=== PATIENT | female | born 1990 | race Caucasian/White ===

== ENCOUNTER 2023-06-05 00:25 | Emergency (ER) | payer BC, SELFPAY ==
[2023-06-05 00:26] VITALS: BP 113/65; PULSE 89; RESP 18; TEMP 36; O2SAT 100; BMI 34.9
--- NOTE | 2023-06-05 00:40 | ED.VIS.GI ---
HPI HPI - GI History of Present Illness Chief Complaint: Abd Pain Detail of Chief Complaint: Epigastric and right upper quadrant abdominal pain that began around 4:30 Informant: patient and spouse/S.O. Abdominal Pain/Flank Pain Onset: Today and Hours Context: Gradual Onset Timing: Continuous Quality: Aching Location: Epigastric and RUQ Current Severity: Mild Maximum Severity: Moderate Worsened by: Nothing Relieved by: Nothing Nausea/Vomiting/Emesis GI Symptom: Positive for Nausea and Vomiting Onset: Today Severity: Mild Diarrhea/Melena/Hematochezia GI Symptom: Negative for Diarrhea, Melena or Hematochezia Associated Symptoms Associated Symptoms: Negative for Dysuria, Frequency, Hematuria or Urgency Narrative Narrative: 33-year-old female no significant past medical history currently on control and her last menstrual period is now. States she has had epigastric and right upper quadrant abdominal pain since around 4:30 pm this afternoon. Had this before without any specific diagnosis. Denies any prior abdominal or pelvic surgeries. Denies any fever. She has had nausea and vomiting. No diarrhea. No dysuria. No abdominal trauma. Prior similar symptoms: Yes Recent Illness/Hospitalization: No PFSH PFSH Medical History no medical history no medical history Home Medications drospirenone 3 mg-ethinyl estradiol 0.02 mg tablet (Lo-Zumandimine (28)) 1 tab PO DAILY 06/05/23 [History Last Taken Unknown] Allergy/AdvReac Type Severity Reaction Status Date / Time No Known Allergies Allergy Verified 06/05/23 00:26 Social History Smoking Status: Never smoker ROS ROS ED ROS Narrative Epigastric and right upper quadrant abdominal pain. Nausea and vomiting. No diarrhea. No fever. No dysuria. No constipation. Review of Systems ROS Unobtainable: Denies due to encephalopathy Constitutional Constitutional ED: Denies chills or fever(s) Cardiovascular Cardiovascular: Denies chest pain Respiratory/Chest Respiratory/Chest: Denies dyspnea Gastrointestinal Gastrointestinal: Reports abdominal pain, nausea and vomiting; Denies constipation, diarrhea or melena Genitourinary Genitourinary ED: Denies dysuria or urinary frequency Musculoskeletal Musculoskeletal: Denies arthralgias or back pain Integumentary Denies abscess or Abrasions Neurologic Neurologic: Denies headache(s) Psychiatric Psychiatric: Denies anxiety Endocrine Endocrinology: Denies polydipsia Hematologic/Lymphatic Hematologic/Lymphatic: Denies easy bleeding or easy bruising Allergic/Immunologic Allergic/Immunologic ED: Denies mouth swelling, tongue swelling or urticaria EXAM Physical Exam Narrative Exam Narrative: 33-year-old female vital signs are stable afebrile. Significant other bedside. H EENT exam unremarkable. Moist mucous membranes. Neck nontender no lymphadenopathy. Lungs clear to auscultation bilaterally. Heart regular rhythm rate about 90 no murmur. Chest wall and ribs nontender. Back nontender. Epigastric and right upper quadrant tenderness. No Calderon sign. No McBurney's point tenderness. No hernia or mass. No obstruction. Right lower and left lower quadrant unremarkable. No signs of trauma. Moving all 4 extremities. Nontender no edema. Neurologically she is awake and alert with no focal motor deficits. Const Vital Signs: 06/05/23 00:26 06/05/23 03:38 06/05/23 04:37 Temperature 96.8 F L Temperature Source Temporal Pulse Rate 89 80 83 Respiratory Rate 18 16 19 H Blood Pressure 113/65 126/77 H 141/82 H Blood Pressure Mean 81 93 101 Pulse Ox 100 100 96 Oxygen Delivery Method Room Air Room Air Room Air 06/05/23 05:08 06/05/23 05:43 Temperature 98.0 F Temperature Source Pulse Rate 88 85 Respiratory Rate 18 18 Blood Pressure 152/83 H 138/85 H Blood Pressure Mean 106 102 Pulse Ox 96 99 Oxygen Delivery Method Positive well nourished and well developed; Negative for cachectic, contractures or unkempt General Appearance ED: well developed and NAD; Negative for unkempt, cachectic, contractures or pallor Nutritional Appearance: Negative for cachectic HEENT Reports moist mucous membranes normocephalic and atraumatic; Negative for trauma or tenderness Eyes PERRL and EOMs intact bilaterally General Eye ED: Negative for pale conjunctiva or scleral icterus Neck no lymphadenopathy, supple and no JVD General: Negative for tenderness Carotids: Negative for other Lymph Lymphatic: Negative for other Resp normal respiratory effort and clear to auscultation bilaterally Effort and Inspection: Negative for respiratory distress Auscultation: Negative for rales, rhonchi or wheezes Cardio regular rate, regular rhythm, S1 normal heart sound, S2 normal heart sound and no murmurs Rate: Negative for bradycardia or tachycardic Rhythm: Negative for abnormal rhythm GI non-distended and no masses; Negative for non-tender Inspection: abdominal distention Auscultation: normoactive bowel sounds Palpation: soft and tender; Negative for guarding, rigid, hepatomegaly, splenomegaly, hernia, mass, pulsatile mass or rebound tenderness present Back/Spine no CVA tenderness General Back: Negative for CVA tenderness Cervical Spine: Negative for cervical spine tenderness Thoracic Spine / Upper Back: Negative for thoracic spinal tenderness Lumbar Spine / Lower Back: Negative for lumbar spinal tenderness Coccyx: Negative for other Extremity full ROM General Extremety ED: Negative for edema, tenderness or other findings General Extremity: Negative for edema or other findings Neuro CN's II-XII intact bilaterally and moves all extremities Sensorium / Orientation: alert, oriented to person, oriented to place and oriented to time; Negative for orientation impaired, confused, lethargic or stuporous Motor Exam: strength 5/5 throughout; Negative for general weakness or strength abnormal Psych mental status grossly normal and thought process normal Appearance: Negative for unkempt Attitude: No agitated Mood & Affect: Negative for depressed, anxious or tearful Skin no wounds General Skin Exam: Negative for jaundice or pallor Lesions: no lesions Rashes: no rashes Trauma: Negative for abrasion Nails: Negative for discolored MDM MDM MDM Narrative Medical decision making narrative: 33-year-old female with epigastric right upper quadrant abdominal pain. Differential would include gallbladder disease, pancreatitis, gastritis versus other etiologies. CAT scan labs. Morphine for pain and Zofran for nausea. Repeat exam at 2:44 AM patient doing well. She still having some pain and nausea she will be given additional dose of morphine and Zofran. We have gone over her test results were awaiting CAT scan radiology interpretation. Repeat exam at 3:25 AM. Patient is resting comfortably. Pain is currently under control. As is her nausea. I went over her lab results with her along with the CAT scan results. The concern is that if this is an adenoma it may be bleeding either into the tumor or the liver. We really do not have anybody here that would be able to take care of this and we also do not have interventional radiology on the weekends. I have already spoken to the transfer line at [facility] awaiting to speak to their general surgeon. We are unable to get a ground squad before 7 AM. Patient is having increasing pain. He is received 3 doses of morphine and Zofran. The concern is we do not know how much she is bleeding into her liver or into the adenoma. And there is really nothing else I can offer her at our facility. Were going to see if [facility] or another helicopter transfer is available. Due to the weather though not flying tonight. But they will send in ground squad and should be here in the next hour. I have updated the family on the current plan. [facility] ground squad is here to take the patient at 6:50 AM. She is doing well. She will be given a dose of morphine and Zofran prior to discharge for pain during the ride. History & Record Review Discussion w/independent historian: Patient Additional record(s) reviewed:: No prior records Lab Data Attestation: I reviewed the patient's lab results. Lab results narrative: Chemistries sodium 135. Normal gap. Normal BUN and creatinine. Liver enzymes elevated normal bilirubin. Lipase normal at 52. CBC shows an elevated white count of 15.1. H&H of 10.4 and 32.7. Platelets 169. Serum test negative. Urinalysis is positive for white cells 10-25, red cells 10-25 nitrites and 3+ bacteria consistent with a UTI. No prior labs available for comparison. CAT scan of the abdomen and pelvis with IV contrast shows a large heterogeneous abnormality in the right hepatic lobe measuring 15 x 14 x 11 cm. There is also an internal focus of hyperdensity. This may represent hemorrhage radiologist thinks this may be an adenoma with intra tumor hemorrhage. There is also cholelithiasis but no signs of acute cholecystitis. Labs: Laboratory Results - last 24 hr 06/05/23 06/05/23 06/05/23 00:52 00:52 01:54 WBC Cancelled 15.1 H Corrected WBC Cancelled RBC Cancelled 3.58 L Hgb Cancelled 10.4 L Hct Cancelled 32.7 L MCV Cancelled 91.3 MCH Cancelled 29.1 MCHC Cancelled 31.8 L RDW Std Deviation Cancelled 41.1 RDW Coeff of John Cancelled 12.3 Plt Count Cancelled 169 MPV Cancelled 11.0 Immature Gran % (Auto) Cancelled 0.400 Neut % (Auto) Cancelled 80.0 H Lymph % (Auto) Cancelled 14.3 L Rabun % (Auto) Cancelled 4.5 Eos % (Auto) Cancelled 0.3 Baso % (Auto) Cancelled 0.5 Absolute Neuts (auto) Cancelled 12.1 H Absolute Lymphs (auto) Cancelled 2.16 Total Counted Cancelled Neutrophils % (Manual) Cancelled Band Neutrophils % Cancelled Lymphocytes % (Manual) Cancelled Monocytes % (Manual) Cancelled Eosinophils % (Manual) Cancelled Basophils % (Manual) Cancelled Metamyelocytes % Cancelled Myelocytes % Cancelled Promyelocytes % Cancelled Blast Cells % Cancelled Plasma Cell % (Manual) Cancelled Other Cells % Cancelled Nucleated RBC % Cancelled 0 Nucleated RBCs/100 WBC Cancelled Differential Comment Cancelled Diff Path Review Cancelled Hypersegmented Neuts Cancelled Atypical Lymphocytes Cancelled Reactive Lymphocytes Cancelled Smudge Cells Cancelled Toxic Granulation Cancelled Toxic Vacuolation Cancelled Dohle Bodies Cancelled Belkis Rods Cancelled Platelet Estimate Cancelled Plt Morphology Comment Cancelled RBC Morphology Cancelled Cancelled Polychromasia Cancelled Hypochromasia Cancelled Poikilocytosis Cancelled Basophilic Stippling Cancelled Anisocytosis Cancelled Microcytosis Cancelled Macrocytosis Cancelled Spherocytes Cancelled Sickle Cells Cancelled Target Cells Cancelled Tear Drop Cells Cancelled Ovalocytes Cancelled Stomatocytes Cancelled Dhillon-[place] Bodies Cancelled Ashly Cells Cancelled Bite Cells Cancelled Crenated Cell Cancelled Acanthocytes (Spur) Cancelled Rouleaux Cancelled Schistocytes Cancelled Sodium 135 L Potassium 3.8 Chloride 102 Carbon Dioxide 24.0 Anion Gap 9 BUN 15 Creatinine 0.92 Estim Creat Clear Calc 93.24 Est GFR (MDRD) Af Amer 91 Est GFR (MDRD) Non-Af 75 BUN/Creatinine Ratio 16.3 Glucose 170 H Calcium 9.1 Total Bilirubin 0.50 AST 206 H ALT 307 H Alkaline Phosphatase 124 H Total Protein 7.4 Albumin 3.3 Globulin 4.1 Albumin/Globulin Ratio 0.8 L Lipase 52 Serum , Qual Cancelled NEGATIVE Urine Color Urine Clarity Urine pH Ur Specific [place] Urine Protein Urine Glucose (UA) Urine Ketones Urine Occult Blood Urine Nitrite Urine Bilirubin Urine Urobilinogen Ur Leukocyte Esterase Urine RBC Urine WBC Ur Squamous Epith Cells Urine Bacteria Urine Mucus 06/05/23 02:08 WBC Corrected WBC RBC Hgb Hct MCV MCH MCHC RDW Std Deviation RDW Coeff of John Plt Count MPV Immature Gran % (Auto) Neut % (Auto) Lymph % (Auto) Rabun % (Auto) Eos % (Auto) Baso % (Auto) Absolute Neuts (auto) Absolute Lymphs (auto) Total Counted Neutrophils % (Manual) Band Neutrophils % Lymphocytes % (Manual) Monocytes % (Manual) Eosinophils % (Manual) Basophils % (Manual) Metamyelocytes % Myelocytes % Promyelocytes % Blast Cells % Plasma Cell % (Manual) Other Cells % Nucleated RBC % Nucleated RBCs/100 WBC Differential Comment Diff Path Review Hypersegmented Neuts Atypical Lymphocytes Reactive Lymphocytes Smudge Cells Toxic Granulation Toxic Vacuolation Dohle Bodies Belkis Rods Platelet Estimate Plt Morphology Comment RBC Morphology Polychromasia Hypochromasia Poikilocytosis Basophilic Stippling Anisocytosis Microcytosis Macrocytosis Spherocytes Sickle Cells Target Cells Tear Drop Cells Ovalocytes Stomatocytes Dhillon-[place] Bodies [place] Cells Bite Cells Crenated Cell Acanthocytes (Spur) Rouleaux Schistocytes Sodium Potassium Chloride Carbon Dioxide Anion Gap BUN Creatinine Estim Creat Clear Calc Est GFR (MDRD) Af Amer Est GFR (MDRD) Non-Af BUN/Creatinine Ratio Glucose Calcium Total Bilirubin AST ALT Alkaline Phosphatase Total Protein Albumin Globulin Albumin/Globulin Ratio Lipase Serum , Qual Urine Color Yellow Urine Clarity Clear Urine pH 5.0 Ur Specific [place] 1.020 Urine Protein 30 H Urine Glucose (UA) Normal Urine Ketones 50 H Urine Occult Blood 250 H Urine Nitrite Positive H Urine Bilirubin Negative Urine Urobilinogen Normal Ur Leukocyte Esterase 500 H Urine RBC 10-25 SEEN Urine WBC 10-25 SEEN Ur Squamous Epith Cells 0-5 SEEN Urine Bacteria 3+ Urine Mucus 0 SEEN Radiography Diagnostic Testing: Clinical Impression(s) from Imaging Studies Abdomen/Pelvis CT 06/05/23 02:25 IMPRESSION: 1. Large, heterogeneous abnormality in the right hepatic lobe measuring 15.3 x 14.8 x 11.2 cm. Predominantly hypodense compared to the normal hepatic parenchyma, but internal focus of hyperdensity near the superior margin of the lesion may represent hemorrhage into the lesion, series 2 image 30. Small peripheral calcification is noted posteriorly. Findings are concerning for a hepatic adenoma with intratumoral hemorrhage. Other hepatic neoplasms are possible but considered less likely. Patient is at risk for tumor rupture which could be due to intraperitoneal extravasation. Recommend surgical consultation. 2. Cholelithiasis. Electronically Signed: Aaron Morrison MD at 3:20 EST , ADDENDUM: 06/05/23 0327 IMPRESSION: 1. Large, heterogeneous abnormality in the right hepatic lobe measuring 15.3 x 14.8 x 11.2 cm. Predominantly hypodense compared to the normal hepatic parenchyma, but internal focus of hyperdensity near the superior margin of the lesion may represent hemorrhage into the lesion, series 2 image 30. Small peripheral calcification is noted posteriorly. Findings are concerning for a hepatic adenoma with intratumoral hemorrhage. Other hepatic neoplasms are possible but considered less likely. Patient is at risk for tumor rupture which could be due to intraperitoneal extravasation. Recommend surgical consultation. 2. Cholelithiasis. N.B. : The above Results were Read Back by Aaron Morrison MD to Los Lucero MD, and understanding confirmed on 06/05/2023 03:20:53 (ET). Electronically Signed: Aaron Morrison MD at 3:20 EST , Critical Care Time Critical Care Time: Yes Critical care time (excluding procedures): 30-74 minutes, Including time spent:, Discussing w/Patient &/or Family/[employer], Discussing w/Consultants, Arranging Admission or Transfer, Performing Direct Patient Care at Bedside and - (35 min) Discharge Plan Triage Chief Complaint: Abd Pain ED Provider: Los Lucero Dx/Rx/DC Orders Clinical Impression: Leukocytosis, Elevated liver enzymes, Abdominal pain, Liver mass, Liver hemorrhage, UTI (urinary tract infection) Prescriptions: No Action drospirenone-ethinyl estradiol [Lo-Zumandimine (28)] 3-0.02 mg tablet 1 tab PO DAILY Primary Care Provider: Stephanie Story Referrals: Stephanie Story, LIZABETH [Primary Care Provider] - Disposition Disposition: Acute Care Hospital
[2023-06-05] MEDS: 0.9% Normal Saline (1000mL) 1,000 ML 1000 ML IV (00:53)
[2023-06-05] MEDS: Morphine 4 MG/ML Syringe 6 MG IV (00:54)
[2023-06-05] MEDS: Ondansetron 4 MG/2 ML Vial IV ×3 (00:54→05:12)
[2023-06-05 01:21] LABS: ALB/GLOB Ratio 0.8 RATIO (0.9-2.4); AST(SGOT) 206 U/L (15-37); Alanine Aminotransfer ALT/SGPT 307 U/L (13-56); Albumin, Serum 3.3 g/dL (3.2-5.0); Alkaline Phosphatase 124 U/L (45-117); Anion Gap 9 (5-15); BUN 15 mg/dL (7-18); BUN/Creat Ratio 16.3 RATIO (10-20); Calcium,Total 9.1 mg/dL (8.5-10.1); Chloride 102 mmol/L (98-107); Creatinine, Serum 0.92 mg/dL (0.55-1.02); EST Glomerular Filtration Rate 75 mL/min (>60); Est Glom Filt Rate - Afr Amer 91 mL/min (>60); Estimated Creatinine Clearance 93.24 ml/min; Globulin 4.1 g/dL (2.2-4.2); Glucose 170 mg/dL (74-106); Lipase 52 U/L (13-75); Potassium 3.8 mmol/L (3.5-5.1); Protein, Total 7.4 g/dL (6.4-8.2); Sodium Level 135 mmol/L (136-145)
[2023-06-05 01:59] LABS: Absolute Lymphocyte Count 2.16 X10^3/uL (0.83-4.51); Absolute Neutrophil Count 12.1 X10^3/uL (2.0-7.7); Basophil# 0.07 X10^3/uL; Basophil% 0.5 % (0-1); Eosinophil# 0.04 X10^3/uL; Eosinophils% 0.3 % (0-5); Hematocrit 32.7 % (37-47); Hemoglobin 10.4 g/dL (12.0-15.0); Lymphocyte # 2.16 X10^3/ul (0.83-4.51); Lymphocyte % 14.3 % (19-41); Mean Corp Hgb Conc 31.8 g/dL (32-36); Mean Corpuscular Hgb 29.1 pg (27.0-32.0); Mean Corpuscular Volume 91.3 fL (81-99); Monocyte# 0.68 X10^3/uL; Monocyte% 4.5 % (0-10); NRBC Flagged by Analyzer 0 % (0-5); Neutrophil # 12.05 X10^3/uL (2.7-7.7); Platelet Count 169 K/mm3 (150-450); RBC Distribution Width CV 12.3 % (11.6-14.6); RBC Distribution Width SD 41.1 fl (35.1-43.9); Red Blood Count 3.58 M/mm3 (4.2-5.4); White Blood Count 15.1 K/mm3 (4.4-11.0)
[2023-06-05 02:12] LABS: Internal QC Validated? YES +Cl - CLEAR BKGD; Pregnancy, Serum, hCG Quali. NEGATIVE Negative
[2023-06-05 02:13] LABS: Mucous, Urine 0 SEEN /hpf (<or=2+)
[2023-06-05 02:14] LABS: Glucose, Dipstick Normal (Normal); Ketone-Dipstick 50 mg/dl (Negative); Leukocyte Esterase-Dipstick 500 /ul (Negative); Nitrite-Dipstick Positive (Negative); Occult Blood-Urine 250 /ul (Negative); Protein-Dipstick 30 mg/dl (Negative); Urine Bilirubin Dipstick Negative (Negative); Urine Urobilinogen Normal (Normal)
[2023-06-05 02:15] LABS: Color, Urine Yellow (Yellow); Urine Clarity Clear (Clear)
[2023-06-05 02:21] LABS: Bacteria 3+ /hpf (None Seen); Red Blood Cells-Urine 10-25 SEEN /hpf (0-5); Squamous Epithelial Cells - UA 0-5 SEEN /hpf (5-10); White Blood Cells 10-25 SEEN /hpf (0-5)
--- NOTE | 2023-06-05 02:25 | CT_ITS ---
We are attempting to reach an attending provider to discuss findings. An addendum with communication details will be sent when the communication is complete. EXAM: CT ABDOMEN AND PELVIS WITH INTRAVENOUS CONTRAST CLINICAL INDICATION: epig and ruq abd pain TECHNIQUE: Helically acquired images were obtained of the abdomen and pelvis with intravenous contrast. This CT exam was performed using one or more of the following dose reduction techniques: automated exposure control, adjustment of the mA and/or kV according to patient size, and/or use of iterative reconstruction technique. CONTRAST: IV 100mL Isovue-300 RADIATION DOSE: CTDIvol = 17.36 mGy, DLP = 1776.62 mGy-cm COMPARISON: No relevant prior studies available. FINDINGS: LOWER THORAX: Unremarkable. Lung bases are clear. No cardiomegaly. No significant pericardial effusion. ABDOMEN: LIVER: Large, heterogeneous abnormality in the right hepatic lobe measuring 15.3 x 14.8 x 11.2 cm. Predominantly hypodense compared to the normal hepatic parenchyma, but internal focus of hyperdensity near the superior margin of the lesion may represent hemorrhage into the lesion, series 2 image 30. Small peripheral calcification is noted posteriorly. GALLBLADDER AND BILE DUCTS: Cholelithiasis. No gallbladder distention or wall edema. No intra- or extrahepatic biliary ductal dilation. PANCREAS: Unremarkable. No focal cystic or solid mass. SPLEEN: Unremarkable. Normal size without focal cystic or solid mass. ADRENALS: Unremarkable. No nodules. KIDNEYS AND URETERS: Unremarkable. Normal renal size and position. No hydronephrosis. STOMACH AND BOWEL: Unremarkable. No stomach or bowel distention. No focal inflammatory change. PELVIS: APPENDIX: No evidence of acute appendicitis. BLADDER: Unremarkable. REPRODUCTIVE: Unremarkable as visualized. No mass. ABDOMEN and PELVIS: INTRAPERITONEAL SPACE: Unremarkable. No ascites or other fluid collection. No free air. BONES/JOINTS: Unremarkable. No suspicious lytic or blastic abnormality. SOFT TISSUES: Unremarkable. No discrete abdominal or pelvic wall hernia. VASCULATURE: Unremarkable. Abdominal aorta is non-dilated. LYMPH NODES: Unremarkable. No enlarged lymph nodes. CT/Abdomen/Pelvis W IV Cont ONLY IMPRESSION: 1. Large, heterogeneous abnormality in the right hepatic lobe measuring 15.3 x 14.8 x 11.2 cm. Predominantly hypodense compared to the normal hepatic parenchyma, but internal focus of hyperdensity near the superior margin of the lesion may represent hemorrhage into the lesion, series 2 image 30. Small peripheral calcification is noted posteriorly. Findings are concerning for a hepatic adenoma with intratumoral hemorrhage. Other hepatic neoplasms are possible but considered less likely. Patient is at risk for tumor rupture which could be due to intraperitoneal extravasation. Recommend surgical consultation. 2. Cholelithiasis. Electronically Signed: Aaron Morrison MD at 3:20 EST ,
[2023-06-05] MEDS: Morphine 4 MG/ML Syringe IV (02:57)
[2023-06-05] MEDS: Ceftriaxone 1 GM/50 ML BAG IV (03:36)
[2023-06-05 03:38] VITALS: BP 126/77; PULSE 80; RESP 16; O2SAT 100
[2023-06-05 04:37] VITALS: BP 141/82; PULSE 83; RESP 19; O2SAT 96
--- NOTE | 2023-06-05 05:03 | ED.RN ---
Phone call placed to TRISH Morris of [facility] per Dr. Lucero request. Pt needs to be moved as soon as possible due to possibility of rupture. He suggests called [facility] and he will try to move transport time up. Per corporate secretary, critical care will not transport unless pt is critical. Shortly after Arturo calls back and reports that squad was able to be moved up an hour. Around 5am, Dr. Lucero comes out of pt's room and requests pt be sent by helicopter.
[2023-06-05 05:08] VITALS: BP 152/83; PULSE 88; RESP 18; TEMP 36.7; O2SAT 96
[2023-06-05] MEDS: morphine 8 MG/ML Syringe 6 MG IV (05:11)
[2023-06-05 05:43] VITALS: BP 138/85; PULSE 85; RESP 18; O2SAT 99
== END 2023-06-05 06:54 | disposition short-term general hospital (02) ==
PROVIDERS: Emergency Provider Emergency Medicine; PCP Physician Assistant; Visit Provider Emergency Medicine
DX: R10.11 Right upper quadrant pain (principal); N39.0 Urinary tract infection, site not specified; R16.0 Hepatomegaly, not elsewhere classified; D72.829 Elevated white blood cell count, unspecified; R74.8 Abnormal levels of other serum enzymes; K76.89 Other specified diseases of liver; R10.13 Epigastric pain
CPT/HCPCS: 74177; 80053; 81001; 83690; 84703; 85025; 87077; 87086; 87088; 87186; 99285; J7050; Q9967; A4216; J2405